=== PATIENT | male | born 1990 | race Caucasian/White ===

== ENCOUNTER 2018-08-18 04:37 | Emergency (ER) | payer MEDICARE, MEDICAID ==
[2018-08-18 05:20] VITALS: BP 162/90
--- NOTE | 2018-08-18 05:25 | EDM.PDOC ---
ED HPI GENERAL MEDICAL PROBLEM - General Chief Complaint: General Stated Complaint: ABDOMINAL PAIN, RIGHT SIDE Time Seen by Provider: 08/18/18 05:20 Source of Information: Reports: Patient History Limitations: Reports: No Limitations - History of Present Illness INITIAL COMMENTS - FREE TEXT/NARRATIVE: Pt was walking on the side walk and fell and landed on his rt chest. He has some pain when he takes a deep breath . He has increased pain when he lies down. Onset: Other (pt fell yesterday. ) Duration: Hour(s): Location: Reports: Chest Associated Symptoms: Reports: Chest Pain, Other (pain with deep breathing. ) Treatments PERFORMING [employer] RO[address] MANAGER: Reports: Other (see below) Other Treatments PERFORMING [employer] RO[address] MANAGER: none Right Lower Rib Pain Score (Numeric/FACES): 1 - Related Data Allergies Allergy/AdvReac Type Severity Reaction Status Date / Time Penicillins Allergy Intermediate Rash Verified 08/18/18 04:56 amoxicillin trihydrate Allergy Cannot Verified 08/18/18 04:56 [From Augmentin] Remember potassium clavulanate Allergy Cannot Verified 08/18/18 04:56 [From Augmentin] Remember Home Meds: Home Meds NK [No Known Home Meds] 08/18/18 [History] Past Medical History HEENT History: Reports: Other (See Below) Other HEENT History: ear infections Cardiovascular History: Reports: Hypertension Musculoskeletal History: Reports: Fracture Psychiatric History: Reports: ADHD - Infectious Disease History Infectious Disease History: Reports: Chicken Pox - Past Surgical History Musculoskeletal Surgical History: Reports: Other (See Below) Social & Family History - Tobacco Use Smoking Status *Q: Current Every Day Smoker Years of Tobacco use: 12 Packs/Tins Daily: 1 Second Hand Smoke Exposure: Yes - Caffeine Use Caffeine Use: Reports: Energy Drinks, Soda - Recreational Drug Use Recreational Drug Use: No ED ROS GENERAL - Review of Systems Review Of Systems: See Below Constitutional: Reports: No Symptoms HEENT: Reports: No Symptoms Respiratory: Reports: Other ( pain in the rt chest. ) Cardiovascular: Reports: Chest Pain Endocrine: Reports: No Symptoms GI/Abdominal: Reports: No Symptoms : Reports: No Symptoms ED EXAM, GENERAL - Physical Exam Exam: See Below Free Text/Narrative:: pt fell when he was walking. He landed on his rt chest. Exam Limited By: No Limitations General Appearance: Alert, Mild Distress Ears: Normal TMs Nose: Normal Inspection Throat/Mouth: Normal Inspection Head: Atraumatic Neck: Normal Inspection Respiratory/Chest: Other (pt is tender in the loqwer rt ant chest. He has pain with deep breathing. ) Cardiovascular: Regular Rate, Rhythm Peripheral Pulses: 0: Popliteal (R) GI/Abdominal: Soft, Non-Tender (Male) Exam: Deferred Rectal (Males) Exam: Deferred Neurological: Alert, Oriented Course - Vital Signs Last Recorded V/S: Last Vital Signs Temp 36.4 C 08/18/18 04:52 Pulse 91 08/18/18 04:52 Resp 12 08/18/18 04:52 BP 162/90 H 08/18/18 04:52 Pulse Ox 95 08/18/18 04:52 - Orders/Labs/Meds Orders: Active Orders 24 hr Category Date Time Status Ribs 2V w Chest Rt [CR] Stat Exams 08/18/18 05:16 Taken Meds: Medications Discontinued Medications Generic Name Dose Route Start Last Admin Trade Name Freq PRN Reason Stop Dose Admin Acetaminophen 650 mg 08/18/18 05:26 Tylenol PO 08/18/18 05:27 NOW ONE Departure - Departure Time of Disposition: 05:43 Disposition: Home, Self-Care 01 Condition: Fair Clinical Impression: Contusion of rib on right side - Discharge Information Referrals: Tay Vargas MD [Primary Care Provider] - Forms: ED Department Discharge Care Plan Goals: heat to the area, encourage deep breathing, motrin 600mg qid as needed for pain. - My Orders Last 24 Hours: My Active Orders 08/18/18 05:16 Ribs 2V w Chest Rt [CR] Stat - Assessment/Plan Last 24 Hours: My Active Orders 08/18/18 05:16 Ribs 2V w Chest Rt [CR] Stat
[2018-08-18] MEDS ORDERED: Acetaminophen 325 MG Tab PO ONE (05:26)
--- NOTE | 2018-08-18 05:46 | CRLCR ---
INDICATION: Chest pain after fall TECHNIQUE: Chest radiograph, Rib radiographs 3 views right COMPARISON: None FINDINGS: Moderate degradation of image quality noted due to body habitus. Mediastinum: The mediastinum is normal in appearance. The heart silhouette is normal in size and morphology. Lung: Both lungs are unremarkable in appearance. No sign of pleural effusion seen. No pneumothorax is identified. Ribs and bones: No definite acute rib fractures are identified in the visualized ribs. The remaining osseous structures are unremarkable for age. Soft tissue: Unremarkable. IMPRESSION: 1. No acute cardiopulmonary disease is seen. No acute rib injuries noted. Dictated by Chris Lazcano MD @ 08/18/2018 5:45:34 AM Dictated by: Chris Lazcano MD @ 08/18/2018 05:45:38 (Electronically Signed)
== END 2018-08-18 05:56 | disposition home or self-care (01) ==
LOC: JP.ED 04:37
DX: S20.211A Contusion of right front wall of thorax, initial encounter (principal); I10 Essential (primary) hypertension; F17.210 Nicotine dependence, cigarettes, uncomplicated; Z88.0 Allergy status to penicillin; Z88.8 Allergy status to other drugs, medicaments and biological substances; Z88.1 Allergy status to other antibiotic agents; W18.30XA Fall on same level, unspecified, initial encounter; Y92.480 Sidewalk as the place of occurrence of the external cause
CPT/HCPCS: 71101; 99285; A9270

== ENCOUNTER 2019-07-28 21:42 | Emergency (ER) | payer MEDICARE, MEDICAID ==
[2019-07-28 22:06] VITALS: BP 152/92; PULSE 96
--- NOTE | 2019-07-28 22:25 | EDM.PDOC ---
ED HPI GENERAL MEDICAL PROBLEM - General Chief Complaint: ENT Problem Stated Complaint: RT EAR HAS SOMETHING STUCK IN IT Time Seen by Provider: 07/28/19 22:10 Source of Information: Reports: Patient History Limitations: Reports: No Limitations - History of Present Illness INITIAL COMMENTS - FREE TEXT/NARRATIVE: 28 yo male got a piece of his ear bud stuck in his R ear. Is here for removal. Onset: Today, Sudden Onset Date: 07/28/19 Duration: Minutes: Location: Reports: Face (R ext ear canal) Quality: Reports: Dull Severity: Mild Improves with: Reports: None Worsens with: Reports: None Context: Reports: Other (see HPI) Associated Symptoms: Reports: No Other Symptoms Treatments DATA SECURITY CONSULTANT: Reports: Other (see below) (none) - Related Data Allergies Allergy/AdvReac Type Severity Reaction Status Date / Time Penicillins Allergy Intermediate Rash Verified 07/28/19 22:06 amoxicillin trihydrate Allergy Cannot Verified 07/28/19 22:06 [From Augmentin] Remember potassium clavulanate Allergy Cannot Verified 07/28/19 22:06 [From Augmentin] Remember Home Meds: Home Meds Loratadine/Pseudoephedrine [Allergy Relief D-24Hr Tablet] 1 tab PO DAILY [History] Past Medical History HEENT History: Reports: Other (See Below) Other HEENT History: ear infections Cardiovascular History: Reports: Hypertension Musculoskeletal History: Reports: Fracture Psychiatric History: Reports: ADHD - Infectious Disease History Infectious Disease History: Reports: Chicken Pox - Past Surgical History HEENT Surgical History: Reports: Myringotomy w Tube(s) Social & Family History - Tobacco Use Smoking Status *Q: Current Every Day Smoker Years of Tobacco use: 8 Packs/Tins Daily: 0.2 - Caffeine Use Caffeine Use: Reports: Coffee, Soda - Recreational Drug Use Recreational Drug Use: No ED ROS ENT - Review of Systems Review Of Systems: See Below Constitutional: Reports: No Symptoms HEENT: Reports: Other (FB R ear. ) Skin: Reports: No Symptoms Neurological: Reports: No Symptoms ED EXAM, ENT - Physical Exam Exam: See Below Exam Limited By: No Limitations General Appearance: Alert, WD/WN, No Apparent Distress Eye Exam: Bilateral Eye: Normal Inspection Ears: Hearing Grossly Normal, Other (FB in R ear canal. ). No: Hearing Loss Nose: Normal Inspection ED ENT PROCEDURES - Foreign Body Removal Indication:: Ear bud in R ear canal. Performing Doctor:: Bryson Field Foreign Body Other Location Comment:: External auditory canal. Anesthesia Type: None Complications: No Comments: Retrieved with a tiny alligator forceps. Course - Vital Signs Last Recorded V/S: Last Vital Signs Temp 36.5 C 07/28/19 22:05 Pulse 96 07/28/19 22:05 Resp 20 07/28/19 22:05 BP 152/92 H 07/28/19 22:05 Pulse Ox 96 07/28/19 22:05 Departure - Departure Time of Disposition: 22:24 Disposition: Home, Self-Care 01 Condition: Good Clinical Impression: Ear foreign body Qualifiers: Encounter type: initial encounter Laterality: right Qualified Code(s): T16.1XXA - Foreign body in right ear, initial encounter - Discharge Information *PRESCRIPTION DRUG MONITORING PROGRAM REVIEWED*: No *COPY OF PRESCRIPTION DRUG MONITORING REPORT IN PATIENT AG: No Instructions: Ear Foreign Body, [id number] Referrals: Tay Vargas MD [Primary Care Provider] - Additional Instructions: Recheck as needed. Sepsis Event Note - Evaluation Sepsis Screening Result: No Definite Risk - Focused Exam Vital Signs: Vital Signs Temp Pulse Resp BP Pulse Ox 07/28/19 22:05 36.5 C 96 20 152/92 H 96 Date Exam was Performed: 07/28/19 Time Exam was Performed: 22:20
== END 2019-07-28 22:29 | disposition home or self-care (01) ==
LOC: JP.ED 21:42
DX: T16.1XXA Foreign body in right ear, initial encounter (principal); I10 Essential (primary) hypertension; F17.210 Nicotine dependence, cigarettes, uncomplicated; Z79.899 Other long term (current) drug therapy; Z88.0 Allergy status to penicillin; Z88.8 Allergy status to other drugs, medicaments and biological substances; X58.XXXA Exposure to other specified factors, initial encounter
CPT/HCPCS: 69200; 99281; 99282-25

== ENCOUNTER 2019-11-15 13:49 | Emergency (ER) | payer MEDICARE, MEDICAID ==
[2019-11-15 14:24] VITALS: BP 130/85; PULSE 89
--- NOTE | 2019-11-15 16:03 | EDM.PDOC ---
ED HPI GENERAL MEDICAL PROBLEM - General Chief Complaint: ENT Problem Stated Complaint: TOOTHACHE Time Seen by Provider: 11/15/19 15:57 Source of Information: Reports: Patient, RN Notes Reviewed History Limitations: Reports: No Limitations - History of Present Illness INITIAL COMMENTS - FREE TEXT/NARRATIVE: 28-year-old gentleman presents emergency department a complaint of dental pain, he states he has not had any fevers but is noticed some swelling over his jaw and is very tender to the touch he contacted his dentist and they recommended him report to the emergency department Right Lower Tooth/Teeth Pain Score (Numeric/FACES): 10 - Related Data Allergies Allergy/AdvReac Type Severity Reaction Status Date / Time Penicillins Allergy Intermediate Rash Verified 07/28/19 22:06 amoxicillin trihydrate Allergy Cannot Verified 07/28/19 22:06 [From Augmentin] Remember potassium clavulanate Allergy Cannot Verified 07/28/19 22:06 [From Augmentin] Remember Home Meds: Home Meds Loratadine/Pseudoephedrine [Allergy Relief D-24Hr Tablet] 1 tab PO DAILY [History] Past Medical History HEENT History: Reports: Other (See Below) Other HEENT History: ear infections Cardiovascular History: Reports: Hypertension Musculoskeletal History: Reports: Fracture Psychiatric History: Reports: ADHD - Infectious Disease History Infectious Disease History: Reports: Chicken Pox - Past Surgical History HEENT Surgical History: Reports: Myringotomy w Tube(s) Social & Family History - Tobacco Use Smoking Status *Q: Current Every Day Smoker Years of Tobacco use: 7 Packs/Tins Daily: 0.5 - Caffeine Use Caffeine Use: Reports: Coffee, Soda - Recreational Drug Use Recreational Drug Use: No ED ROS ENT - Review of Systems Review Of Systems: See Below Constitutional: Denies: Fever HEENT: Reports: Dental Pain Respiratory: Reports: No Symptoms Cardiovascular: Reports: No Symptoms ED EXAM, ENT - Physical Exam Exam: See Below Text/Narrative:: Mouth mucosa is moist and pink no erythema exudate known soft palate tongue is midline he is tender over tooth #28 there is tenderness to palpation along the jaw on the right side as well neck supple no thyromegaly no tracheal deviation cervical nodes subclavicular nodes nontender nonpalpable no lymphadenopathy noted Exam Limited By: No Limitations General Appearance: Alert, WD/WN, No Apparent Distress Neck: Normal Inspection, Supple, Non-Tender, Full Range of Motion Course - Vital Signs Last Recorded V/S: Last Vital Signs Temp 97.3 F 11/15/19 14:23 Pulse 89 11/15/19 14:23 Resp 16 11/15/19 14:23 BP 130/85 11/15/19 14:23 Pulse Ox 95 11/15/19 14:23 Departure - Departure Time of Disposition: 16:04 Disposition: Home, Self-Care 01 Condition: Fair Clinical Impression: Dental abscess - Discharge Information Instructions: Dental Abscess, [id number] Referrals: Tay Vargas MD [Primary Care Provider] - Additional Instructions: Take full course of antibiotics, use ibuprofen for baseline pain control use hydrocodone as needed for breakthrough pain, please contact the dentist office again in the morning for an emergency assessment Sepsis Event Note - Evaluation Sepsis Screening Result: No Definite Risk - Focused Exam Vital Signs: Vital Signs Temp Pulse Resp BP Pulse Ox 11/15/19 14:23 97.3 F 89 16 130/85 95 Date Exam was Performed: 11/15/19 Time Exam was Performed: 15:58 - Assessment/Plan Plan: Assessment Acuity = acute Site and laterality = dental abscess tooth #28 Etiology = dental caries Manifestations = none Location of injury = Home Lab values = none Plan Prescription written for hydrocodone 5/325 1 tab p.o. 3 times daily PRN total # 10 also clindamycin 300 mg p.o. every 6 hours take until gone total #60 he does have a phone call into the dentist office they should be contacting him this week for further evaluation This note was dictated using [email or web address] voice recognition software please call with any questions on syntax or grammar.
== END 2019-11-15 16:15 | disposition home or self-care (01) ==
LOC: JP.ED 13:49
DX: K04.7 Periapical abscess without sinus (principal); I10 Essential (primary) hypertension; F17.210 Nicotine dependence, cigarettes, uncomplicated; Z88.0 Allergy status to penicillin; Z88.1 Allergy status to other antibiotic agents
CPT/HCPCS: 99282; 99283

== ENCOUNTER 2020-10-27 18:42 | Emergency (ER) | payer MEDICARE, MEDICAID ==
[2020-10-27 18:59] VITALS: BP 157/89; PULSE 97
--- NOTE | 2020-10-27 19:21 | EDM.PDOC ---
ED HPI GENERAL MEDICAL PROBLEM - General Chief Complaint: Back Pain or Injury Stated Complaint: BACK PAIN Time Seen by Provider: 10/27/20 19:07 Source of Information: Reports: Patient History Limitations: Reports: No Limitations - History of Present Illness INITIAL COMMENTS - FREE TEXT/NARRATIVE: Tay is a 29-year-old male presenting to the ED for evaluation of left-sided low back pain. Pain initially started on September 02 when he fell landing on his back. He did not seek any medical attention at that time nor during the interim until today. He comes in finally because it has not improved. The patient does not experience any pain with walking or sitting but only with bending and lifting. He denies any numbness or tingling. He is not had any difficulty with holding his water or stool. He denies any saddle anesthesia. He denies any other injury. Left Lower Back Pain Score (Numeric/FACES): 5 - Related Data Allergies Allergy/AdvReac Type Severity Reaction Status Date / Time Penicillins Allergy Intermediate Rash Verified 10/27/20 18:59 amoxicillin trihydrate Allergy Cannot Verified 10/27/20 18:59 [From Augmentin] Remember potassium clavulanate Allergy Cannot Verified 10/27/20 18:59 [From Augmentin] Remember Home Meds: Home Meds Loratadine/Pseudoephedrine [Allergy Relief D-24Hr Tablet] 1 tab PO DAILY 07/28/19 [History] methocarbamoL [Methocarbamol] 750 mg PO QID PRN #28 tablet 10/27/20 [Rx] Past Medical History HEENT History: Reports: Other (See Below) Other HEENT History: ear infections Cardiovascular History: Reports: Hypertension Musculoskeletal History: Reports: Fracture Psychiatric History: Reports: ADHD Endocrine/Metabolic History: Reports: Obesity/BMI 30+ - Infectious Disease History Infectious Disease History: Reports: Chicken Pox - Past Surgical History HEENT Surgical History: Reports: Myringotomy w Tube(s) Musculoskeletal Surgical History: Reports: Other (See Below) Other Musculoskeletal Surgeries/Procedures:: left ankle surgery Social & Family History - Tobacco Use Tobacco Use Status *Q: Current Every Day Tobacco User Years of Tobacco use: 15 Packs/Tins Daily: 0.5 - Caffeine Use Caffeine Use: Reports: Coffee - Recreational Drug Use Recreational Drug Use: No ED ROS GENERAL - Review of Systems Review Of Systems: See Below Constitutional: Reports: No Symptoms HEENT: Reports: No Symptoms Respiratory: Reports: No Symptoms Cardiovascular: Reports: No Symptoms Endocrine: Reports: No Symptoms GI/Abdominal: Reports: No Symptoms : Reports: No Symptoms Musculoskeletal: Reports: Back Pain Skin: Reports: No Symptoms Neurological: Reports: No Symptoms Psychiatric: Reports: No Symptoms Hematologic/Lymphatic: Reports: No Symptoms Immunologic: Reports: No Symptoms ED EXAM,LOWER BACK PAIN/INJURY - Physical Exam Exam: See Below Exam Limited By: No Limitations General Appearance: Alert, No Apparent Distress Eye Exam: Bilateral Eye: EOMI, PERRL Head: Atraumatic, Normocephalic Back Exam: Full Range of Motion, Muscle Spasm (Lower left paraspinal muscle spasm around the area of T12-L1.), Paraspinal Tenderness (Jack with palpation over the lower left paraspinal muscles). No: Decreased Range of Motion, Vertebral Tenderness Extremities: Normal Inspection, Normal Range of Motion Neurological: Alert, Normal Mood/Affect, Normal Dorsiflexion, Normal Plantar Flexion, Normal Gait, Normal Reflexes, No Motor/Sensory Deficits, Oriented x 3 Psychiatric: Normal Affect, Normal Mood Skin Exam: Warm, Dry, Intact, Normal Color Course - Vital Signs Last Recorded V/S: Last Vital Signs Temp 36.4 C 10/27/20 18:55 Pulse 97 10/27/20 18:55 Resp 18 10/27/20 18:55 BP 157/89 H 10/27/20 18:55 Pulse Ox 98 10/27/20 18:55 - Re-Assessments/Exams Free Text/Narrative Re-Assessment/Exam: 10/27/20 19:17 patient of the lumbar spine reveals some paraspinal muscle tenderness and spasm along the left paraspinal muscle group. My plan is to put the patient on methocarbamol 750 mg 4 times daily as needed for spasm and Toradol 10 mg 4 times daily as needed for pain. Departure - Departure Time of Disposition: 19:21 Disposition: Home, Self-Care 01 Clinical Impression: Strain of lumbar paraspinal muscle Qualifiers: Encounter type: initial encounter Qualified Code(s): S39.012A - Strain of muscle, fascia and tendon of lower back, initial encounter - Discharge Information Instructions: Low Back Strain Rehab-SportsMed, Back Injury Prevention, [id number] Referrals: Tay Vargas MD [Primary Care Provider] - Care Plan Goals: I am placing her on a muscle relaxant called methocarbamol that you may take 1 tablet up to 4 times a day as needed for muscle spasm as well as Toradol for pain control with similar instructions of 1 tab up to 4 times a day. Recommend doing low back stretching exercises as commented in the discharge handout. Sepsis Event Note (ED) - Evaluation Sepsis Screening Result: No Definite Risk - Focused Exam Vital Signs: Vital Signs Temp Pulse Resp BP Pulse Ox 10/27/20 18:55 36.4 C 97 18 157/89 H 98 - Problem List & Annotations (1) Strain of lumbar paraspinal muscle SNOMED Code(s): 352899207 Code(s): S39.012A - STRAIN OF MUSCLE, FASCIA AND TENDON OF LOWER BACK, INIT Status: Acute Priority: Medium Current Visit: Yes Qualifiers: Encounter type: initial encounter Qualified Code(s): S39.012A - Strain of muscle, fascia and tendon of lower back, initial encounter - Problem List Review Problem List Initiated/Reviewed/Updated: Yes
== END 2020-10-27 19:37 | disposition home or self-care (01) ==
LOC: JP.ED 18:42
DX: S39.012A Strain of muscle, fascia and tendon of lower back, initial encounter (principal); I10 Essential (primary) hypertension; E66.9 Obesity, unspecified; Z72.0 Tobacco use; Z68.41 Body mass index [BMI] 40.0-44.9, adult; Z88.0 Allergy status to penicillin; Z88.1 Allergy status to other antibiotic agents; W19.XXXA Unspecified fall, initial encounter
CPT/HCPCS: 99283

== ENCOUNTER 2021-06-20 19:55 | Emergency (ER) | payer MEDICARE, MEDICAID ==
[2021-06-20] MEDS ORDERED: Albuterol/Ipratropium 3.0-0.5 MG/3 ML Neb Soln NEB ONE (20:47)
[2021-06-20 21:40] VITALS: BP 118/53; PULSE 102
--- NOTE | 2021-06-20 21:40 | EDM.PDOC ---
ED HPI GENERAL MEDICAL PROBLEM - General Chief Complaint: Respiratory Problem Stated Complaint: LEFT SIDE CHEST PRESSURE Time Seen by Provider: 06/20/21 21:15 Source of Information: Reports: Patient History Limitations: Reports: No Limitations - History of Present Illness INITIAL COMMENTS - FREE TEXT/NARRATIVE: 30-year-old male with a cough and pain in his left chest with coughing and moderate shortness of breath and wheezing for the past several days. No fevers or chills. Remote history of asthma. No nausea or vomiting, no rashes. Onset: Gradual Duration: Day(s): (2 to 3 days) Associated Symptoms: Reports: Cough, Shortness of Breath left chest/lung Pain Score (Numeric/FACES): 1 - Related Data Allergies Allergy/AdvReac Type Severity Reaction Status Date / Time Penicillins Allergy Intermediate Rash Verified 06/20/21 20:31 amoxicillin trihydrate Allergy Cannot Verified 06/20/21 20:31 [From Augmentin] Remember potassium clavulanate Allergy Cannot Verified 06/20/21 20:31 [From Augmentin] Remember Past Medical History HEENT History: Reports: Other (See Below) Other HEENT History: ear infections Cardiovascular History: Reports: Hypertension Musculoskeletal History: Reports: Fracture Psychiatric History: Reports: ADHD Endocrine/Metabolic History: Reports: Obesity/BMI 30+ - Infectious Disease History Infectious Disease History: Reports: Chicken Pox - Past Surgical History HEENT Surgical History: Reports: Myringotomy w Tube(s) Musculoskeletal Surgical History: Reports: Other (See Below) Other Musculoskeletal Surgeries/Procedures:: left ankle surgery Social & Family History - Tobacco Use Tobacco Use Status *Q: Heavy Tobacco User Years of Tobacco use: 10 Packs/Tins Daily: 0.5 - Caffeine Use Caffeine Use: Reports: Coffee - Recreational Drug Use Recreational Drug Use: No ED ROS GENERAL - Review of Systems Review Of Systems: See Below Constitutional: Denies: Fever, Chills, Malaise HEENT: Reports: No Symptoms. Denies: Throat Pain Respiratory: Reports: Shortness of Breath, Pleuritic Chest Pain (Left side), Cough GI/Abdominal: Reports: No Symptoms : Reports: No Symptoms Skin: Reports: No Symptoms ED EXAM, GENERAL - Physical Exam Exam: See Below Exam Limited By: No Limitations General Appearance: Alert, No Apparent Distress Eye Exam: Bilateral Eye: Normal Inspection Head: Atraumatic Respiratory/Chest: No Respiratory Distress, Wheezing (Patient does have some expiratory wheezes on the right side in the extreme left base) Cardiovascular: Regular Rate, Rhythm. No: Tachycardia Extremities: Normal Inspection Neurological: Alert, Oriented, No Motor/Sensory Deficits Psychiatric: Normal Affect, Normal Mood Course - Vital Signs Last Recorded V/S: Last Vital Signs Temp 97.0 F 06/20/21 20:30 Pulse 102 H 06/20/21 21:39 Resp 16 06/20/21 20:30 BP 118/53 L 06/20/21 21:39 Pulse Ox 95 06/20/21 21:39 - Orders/Labs/Meds Labs: Laboratory Tests 06/20/21 Range/Units 21:13 SARS CoV-2 RNA Rapid HERIBERTO Positive H Meds: Medications Discontinued Medications Generic Name Dose Route Start Last Admin Trade Name Freq PRN Reason Stop Dose Admin Albuterol/Ipratropium 3 ml 06/20/21 20:47 06/20/21 20:51 Albuterol/Ipratropium 3.0-0.5 Mg/3 Ml Neb Soln NEB 06/20/21 20:48 3 ml ONETIME ONE Administration - Re-Assessments/Exams Free Text/Narrative Re-Assessment/Exam: 06/20/21 21:39 Patient was given a DuoNeb with which gave him some subjective and objective i mprovement with less wheezing. Rapid Covid test was obtained and it was positive. He is unvaccinated. I offered him monoclonal antibody therapy but he declined. He will return if worsening. I did discharge him with an albuterol inhaler to use every 3 hours for wheezing. Departure - Departure Time of Disposition: 21:41 Disposition: Home, Self-Care 01 Clinical Impression: Bronchitis due to COVID-19 virus - Discharge Information Instructions: COVID-19 Referrals: Tay Vargas MD [Primary Care Provider] - Forms: ED Department Discharge Care Plan Goals: Use your albuterol inhaler every few hours for wheezing and shortness of breath. Stay hydrated, and return if worsening especially difficulty breathing. Sepsis Event Note (ED) - Evaluation Sepsis Screening Result: No Definite Risk - Focused Exam Vital Signs: Vital Signs Temp Pulse Resp BP Pulse Ox 06/20/21 21:39 102 H 118/53 L 95 06/20/21 20:30 97.0 F 89 16 149/82 H 95 06/20/21 20:11 97.0 F 89 16 149/82 H 95
== END 2021-06-20 21:48 | disposition home or self-care (01) ==
LOC: JP.ED 19:55
DX: U07.1 COVID-19 (principal); J40 Bronchitis, not specified as acute or chronic; I10 Essential (primary) hypertension; E66.9 Obesity, unspecified; Z68.41 Body mass index [BMI] 40.0-44.9, adult; Z88.0 Allergy status to penicillin; Z88.1 Allergy status to other antibiotic agents; Z72.0 Tobacco use
CPT/HCPCS: 94640; 99285; U0002; J7620-GY

== ENCOUNTER 2022-01-12 14:04 | Emergency (ER) | payer MEDICARE, MEDICAID ==
[2022-01-12 15:00] VITALS: BP 149/92; PULSE 82
[2022-01-12] MEDS ORDERED: Ketorolac 30 MG/ML SDV IM ONE (15:41)
== END 2022-01-12 15:54 | disposition home or self-care (01) ==
LOC: JP.ED 14:04
DX: S39.012A Strain of muscle, fascia and tendon of lower back, initial encounter (principal); I10 Essential (primary) hypertension; F17.210 Nicotine dependence, cigarettes, uncomplicated; E66.9 Obesity, unspecified; Z68.41 Body mass index [BMI] 40.0-44.9, adult; Z88.0 Allergy status to penicillin
CPT/HCPCS: 96372; 99283; J1885

== ENCOUNTER 2022-01-28 16:03 | Emergency (ER) | payer OTHER, MEDICARE, MEDICAID ==
[2022-01-28 16:22] VITALS: BP 140/93; PULSE 104
[2022-01-28] MEDS ORDERED: Lidocaine 1% 5 ML VIAL INJECT ONE (16:41)
[2022-01-28] MEDS ORDERED: Bacitracin Oint 1 GM U/D Packet TOP ONE (17:33)
== END 2022-01-28 17:41 | disposition home or self-care (01) ==
LOC: JP.ED 16:03
DX: S01.21XA Laceration without foreign body of nose, initial encounter (principal); S00.81XA Abrasion of other part of head, initial encounter; I10 Essential (primary) hypertension; E66.9 Obesity, unspecified; Z68.39 Body mass index [BMI] 39.0-39.9, adult; Z88.0 Allergy status to penicillin; Z88.1 Allergy status to other antibiotic agents; Z86.16 Personal history of COVID-19; V00.841A Fall from standing electric scooter, initial encounter; Y92.410 Unspecified street and highway as the place of occurrence of the external cause
CPT/HCPCS: 12011; 99281; 99283

== ENCOUNTER 2022-05-30 18:30 | Emergency (ER) | payer MEDICARE, MEDICAID ==
[2022-05-30 18:52] VITALS: BP 145/93; PULSE 94
== END 2022-05-30 19:49 | disposition home or self-care (01) ==
LOC: JP.ED 18:30
DX: S20.212A Contusion of left front wall of thorax, initial encounter (principal); I10 Essential (primary) hypertension; F17.210 Nicotine dependence, cigarettes, uncomplicated; E66.9 Obesity, unspecified; Z68.41 Body mass index [BMI] 40.0-44.9, adult; Z88.0 Allergy status to penicillin; Z88.8 Allergy status to other drugs, medicaments and biological substances; W01.0XXA Fall on same level from slipping, tripping and stumbling without subsequent striking against object, initial encounter
CPT/HCPCS: 99283

== ENCOUNTER 2023-10-02 20:43 | Emergency (ER) | payer MEDICARE, MEDICAID ==
[2023-10-02 21:02] VITALS: BP 168/100; PULSE 91
[2023-10-02 21:25] LABS: BASOPHILS ABSOLUTE AUTO 0.03 K/uL (0.00-0.10); BASOPHILS PERCENT AUTO 0.3 % (0.1-1.3); EOSINOPHILS ABSOLUTE AUTO 0.22 K/uL (0.00-0.40); EOSINOPHILS PERCENT AUTO 2.2 % (0.0-5.4); HEMATOCRIT 48.4 % (38.4-49.7); HEMOGLOBIN 16.7 g/dL (12.9-16.9); IMMATURE GRAN PERCENT AUTO 0.2 % (0.0-0.7); LYMPHOCYTES ABSOLUTE AUTO 2.83 K/uL (0.8-3.3); LYMPHOCYTES PERCENT AUTO 28.5 % (11.4-47.7); MEAN CORPUSCULAR HEMOGLOBIN 29.7 pg (31.6-35.5); MEAN CORPUSCULAR HGB CONC 34.5 g/dL (31.6-35.5); MONOCYTES ABSOLUTE AUTO 0.74 K/uL (0.20-0.90); MONOCYTES PERCENT AUTO 7.4 % (3.3-12.6); NEUTROPHILS PERCENT AUTO 61.4 % (40.0-78.1); PLATELET COUNT,PLT 324 K/uL (130-375); RED BLOOD CELL COUNT 5.63 M/uL (4.14-5.76); WHITE BLOOD CELL COUNT,WBC 9.9 K/uL (3.2-11.0)
[2023-10-02] MEDS: Ketorolac 30 MG/ML SDV IM ONE (21:25)
[2023-10-02 21:26] LABS: IMMATURE GRAN ABSOLUTE AUTO 0.02 K/uL (0.00-0.23)
== END 2023-10-02 22:15 | disposition home or self-care (01) ==
LOC: JP.ED 20:43
DX: K04.7 Periapical abscess without sinus (principal); K02.9 Dental caries, unspecified; R59.0 Localized enlarged lymph nodes; I10 Essential (primary) hypertension; F17.210 Nicotine dependence, cigarettes, uncomplicated; E66.9 Obesity, unspecified; Z86.16 Personal history of COVID-19; Z79.899 Other long term (current) drug therapy; Z88.0 Allergy status to penicillin; Z88.1 Allergy status to other antibiotic agents; Z68.39 Body mass index [BMI] 39.0-39.9, adult
CPT/HCPCS: 36415; 85025; 96372; 99283; 99284; J1885

== ENCOUNTER 2024-09-01 18:47 | Emergency (ER) | payer MEDICARE, MEDICAID ==
[2024-09-01 19:13] VITALS: PULSE 89
[2024-09-01 19:41] VITALS: BP 152/85
== END 2024-09-01 20:14 | disposition home or self-care (01) ==
LOC: JP.ED 18:47
DX: K04.7 Periapical abscess without sinus (principal); I10 Essential (primary) hypertension; E66.9 Obesity, unspecified; F17.210 Nicotine dependence, cigarettes, uncomplicated; Z86.16 Personal history of COVID-19; Z88.0 Allergy status to penicillin; Z88.1 Allergy status to other antibiotic agents; Z88.8 Allergy status to other drugs, medicaments and biological substances; Z79.899 Other long term (current) drug therapy
CPT/HCPCS: 99283